=== PATIENT | male | born 1990 | race Two or more races ===

== ENCOUNTER 2019-06-10 12:44 | Emergency (ER) | payer OTHER ==
[~2019-06-10] VITALS: Ht 162.6 cm; Wt 63.5 kg
[2019-06-10 12:48] VITALS: BP 127/72
[2019-06-10] MEDS ORDERED: NKM (12:52)
[2019-06-10] MEDS ORDERED: Acetaminophen 500mg (ES) tab ORAL ONE (13:45)
[2019-06-10] MEDS ORDERED: Ketorolac 30mg Inj IM ONE (13:45)
[2019-06-10] MEDS ORDERED: LIDODERM700 M1 TOPIC (13:50)
[2019-06-10] MEDS ORDERED: NAPROXEN250 MG ORAL (13:50)
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
[2019-06-10 14:08] VITALS: BP 135/70
--- NOTE | 2019-06-10 14:23 | Diagnostic Imaging Report ---
Indication: Chest pain Technique: One view of the chest Comparison: none Findings: Lungs and pleural spaces are clear. Heart size is normal Impression: No acute process
== END 2019-06-10 14:08 | disposition home or self-care (01) ==
LOC: EMR 14:05
DX: M54.2 Cervicalgia (principal); R07.9 Chest pain, unspecified; T14.8XXA Other injury of unspecified body region, initial encounter; V49.9XXA Car occupant (driver) (passenger) injured in unspecified traffic accident, initial encounter; Y92.410 Unspecified street and highway as the place of occurrence of the external cause; M79.601 Pain in right arm
CPT/HCPCS: 71045; 96372; 99283; J1885